=== PATIENT | female | born 1980 | race Hispanic/Latino ===

== ENCOUNTER 2021-04-27 15:11 | Emergency (ER) | payer SELFPAY ==
[2021-04-27] MEDS ORDERED: SODIUM CHLORIDE 0.9% 1000 ML 1,000 ML IV ONE ×2 (15:26→16:34)
--- NOTE | 2021-04-27 15:32 | Emergency Department Report ---
ED General Adult HPI - General Chief complaint: Altered Mental Status Stated complaint: AMS Time Seen by Provider: 04/27/21 15:26 Source: EMS Mode of arrival: Stretcher Limitations: Altered Mental Status - History of Present Illness Initial comments: Patient is 41 years old female brought to the emergency room from [facility] by EMS for evaluation of altered mental status. EMS reported that the detox center told him that patient was last known normal was 9AM. Patient is alert however she is not oriented in place time and person. Patient is talking gibberish. Vital signs stable. Staff member at the rehab center stated that patient receive Ativan and Haldol today. - Related Data Home Medications Medication Instructions Recorded Confirmed Last Taken Benztropine [Cogentin] 1 mg PO BID 04/28/21 04/28/21 Unknown Cariprazine HCl [Vraylar] 3 mg PO DAILY 04/28/21 04/28/21 Unknown Escitalopram [Lexapro] 10 mg PO DAILY 04/28/21 04/28/21 Unknown Haloperidol Lactate 5 mg IM Q6HR PRN 04/28/21 04/28/21 Unknown Keppra TAB 500 mg PO BID 04/28/21 04/28/21 Unknown LORazepam [Lorazepam] 2 mg PO DAILY 04/28/21 04/28/21 Unknown [place] Carbonate [[place] 450 mg PO BID 04/28/21 04/28/21 Unknown Carbonate ER] risperiDONE [RisperDAL] 1 mg PO QHS 04/28/21 04/28/21 Unknown Previous Rx's Medication Instructions Recorded Last Taken Type Nitrofurantoin [place]/M-Cryst 100 mg PO Q12HR #14 capsule 04/27/21 Unknown Rx [Macrobid CAP] Allergies Allergy/AdvReac Type Severity Reaction Status Date / Time No Known Allergies Allergy Unverified 04/27/21 15:19 ED Review of Systems ROS: Stated complaint: AMS Other details as noted in HPI Comment: Unobtainable due to pts medical conditions ED Past Medical Hx - Past Medical History Previous Medical History?: Yes Hx Seizures: Yes Additional medical history: Bi polar - Medications Home Medications: Home Medications Medication Instructions Recorded Confirmed Last Taken Type Nitrofurantoin [place]/M-Cryst 100 mg PO Q12HR #14 capsule 04/27/21 Unknown Rx [Macrobid CAP] Benztropine [Cogentin] 1 mg PO BID 04/28/21 04/28/21 Unknown History Cariprazine HCl [Vraylar] 3 mg PO DAILY 04/28/21 04/28/21 Unknown History Escitalopram [Lexapro] 10 mg PO DAILY 04/28/21 04/28/21 Unknown History Haloperidol Lactate 5 mg IM Q6HR PRN 04/28/21 04/28/21 Unknown History Keppra TAB 500 mg PO BID 04/28/21 04/28/21 Unknown History LORazepam [Lorazepam] 2 mg PO DAILY 04/28/21 04/28/21 Unknown History [place] Carbonate [[place] 450 mg PO BID 04/28/21 04/28/21 Unknown History Carbonate ER] risperiDONE [RisperDAL] 1 mg PO QHS 04/28/21 04/28/21 Unknown History ED Physical Exam - General Limitations: Altered Mental Status General appearance: alert, appears intoxicated - Head Head exam: Present: atraumatic, normocephalic, normal inspection - Eye Eye exam: Present: normal appearance - ENT ENT exam: Present: mucous membranes dry - Neck Neck exam: Present: normal inspection, full ROM. Absent: tenderness - Respiratory Respiratory exam: Present: normal lung sounds bilaterally - Cardiovascular Cardiovascular Exam: Present: regular rate, normal rhythm, normal heart sounds - GI/Abdominal GI/Abdominal exam: Present: soft, normal bowel sounds. Absent: distended, tenderness, guarding, rebound, rigid, organomegaly, bruit, pulsatile mass, hernia - Extremities Exam Extremities exam: Present: normal inspection, full ROM, normal capillary refill - Back Exam Back exam: Present: normal inspection, full ROM. Absent: CVA tenderness (R), CVA tenderness (L) - Neurological Exam Neurological exam: Present: alert, altered, CN II-XII intact, reflexes normal. Absent: motor sensory deficit - Psychiatric Psychiatric exam: Present: agitated - Skin Skin exam: Present: warm, intact, normal color ED Course Vital Signs 04/27/21 04/27/21 04/27/21 15:34 15:46 16:16 Temperature Pulse Rate 79 80 Respiratory 13 19 Rate Blood Pressure 81/40 107/54 Blood Pressure [Right] O2 Sat by Pulse 95 98 100 Oximetry 04/27/21 04/28/21 04/28/21 17:11 07:40 07:43 Temperature 98.4 F 98 F Pulse Rate 90 Respiratory 20 Rate Blood Pressure Blood Pressure 100/56 [Right] O2 Sat by Pulse 96 96 Oximetry ED Medical Decision Making - Lab Data Result diagrams: 04/27/21 16:09 04/27/21 16:09 - Medical Decision Making Patient is 41 years old female brought to the emergency room from [facility] by EMS for evaluation of altered mental status. EMS reported that the detox center told him that patient was last known normal was 9AM. Patient is alert however she is not oriented in place time and person. Patient is talking gibberish. Vital signs stable. Staff member at the rehab center stated that patient receive Ativan and Haldol today. Labs reviewed and is unremarkable. UDS is negative for acute finding. Patient blood pressure was a little bit low and improved with normal saline. Patient is moving all her extremities no facial droop no clinical evidence of a stroke. I believe patient altered mental status most likely due to medication most likely the Haldol. Patient will be discharged back to the detox facility to finish her treatment. Critical care attestation.: If time is entered above; I have spent that time in minutes in the direct care of this critically ill patient, excluding procedure time. ED Disposition Clinical Impression: Altered mental status Disposition: [address] [place] [address] Is pt being admited?: No Condition: Stable Instructions: Delirium Prescriptions: Nitrofurantoin [place]/M-Cryst [Macrobid CAP] 100 mg PO Q12HR #14 capsule Referrals: PRIMARY CARE, [Primary Care Provider] - 3-5 Days
[2021-04-27 16:32] LABS: Basophils % (Auto) 0.4 % (0.0-1.8); Eosinophils # (Auto) 0.1 K/mm3 (0.0-0.4); Eosinophils % (Auto) 1.4 % (0.0-4.3); Hematocrit 39.3 % (30.3-42.9); Hemoglobin 13.2 gm/dl (10.1-14.3); Lymphocytes # (Auto) 1.3 K/mm3 (1.2-5.4); Lymphocytes % (Auto) 15.4 % (13.4-35.0); Mean Corpuscular HGB Conc 34 % (30-34); Mean Corpuscular Volume 87 fl (79-97); Monocytes # (Auto) 0.4 K/mm3 (0.0-0.8); Monocytes % (Auto) 4.3 % (0.0-7.3); Platelet Count 325 K/mm3 (140-440); Red Blood Count 4.53 M/mm3 (3.65-5.03); Red Cell Distribution Width 13.9 % (13.2-15.2)
[2021-04-27 16:50] LABS: Bilirubin,Urine NEG (Negative); Blood,Urine LG (Negative); Color,Urine Yellow (Yellow); RBC,Urine > 182.0 /HPF (0.0-6.0); Urobilinogen,Urine < 2.0 mg/dL (<2.0)
[2021-04-27 16:50] LABS: Alanine Aminotransferase 14 units/L (7-56); Albumin 4.4 g/dL (3.9-5); BUN/Creatinine Ratio 10; Blood Urea Nitrogen 8 mg/dL (7-17); Calcium 9.4 mg/dL (8.4-10.2); Hemolysis Index 11
[2021-04-27 16:57] LABS: Amphetamine Screen,Urine PRESUMPTIVE NEGATIVE; Benzodiazepines Screen,Urine PRESUMPTIVE NEGATIVE; Cannabinoid Screen,Urine PRESUMPTIVE NEGATIVE; Cocaine Screen,Urine PRESUMPTIVE NEGATIVE; Methadone Screen,Urine PRESUMPTIVE NEGATIVE; Opiate Screen,Urine PRESUMPTIVE NEGATIVE
[2021-04-27 16:57] LABS: Bilirubin,Direct < 0.2 mg/dL (0-0.2)
--- NOTE | 2021-04-27 18:31 | XRay Report ---
CHEST 1 VIEW INDICATION: Altered Mental Status. COMPARISON: None FINDINGS: SUPPORT DEVICES: None. HEART: Within normal limits. LUNGS/PLEURA: No acute air space or interstitial disease. ADDITIONAL FINDINGS: None. IMPRESSION: 1. No acute findings. Signer Name: Jamel Lemus MD Signed: 04/27/2021 6:27 PM Workstation Name: [id number]
[2021-04-28] MEDS ORDERED: SODIUM CHLORIDE 0.9% 1000 ML 0 ML ONE (06:24)
--- NOTE | 2021-04-28 10:41 | Consultation ---
History of Present Illness - Reason for Consult Consult date: 04/28/21 Reason for consult: Mental health evaluation - History of Present Psychiatric Illness Per Note: Patient is 41 years old female with history of bipolar. Patient brought to the emergency room yesterday from [facility] for evaluation of altered mental status. Patient has been admitted to their facility for few days. Patient is medically clear by me to go back to their facility for to finish her treatment however facility refused to take the patient back stating that patient need higher level of care. I consulted our mental health team to evaluate patient for further recommendation. Patient spend the whole night's walking in the psychiatric area picking up trash he is in looking into trash cans. Patient is alert however she is disoriented. Patient told me that she 1 the partition between the 2 rooms open so she can observe her baby because the lady that take care of them she left them alone and went to do her nails. I believe patient is in acute psychosis Debbi Fuentes is a 41 year old female with history of Bipolar. The patient presents with disorganized thoughts and flight of ideas. She is pacing around the room and unable to participate in assessment. Psych History: Unable to assess PAST MEDICAL HISTORY: Unable to assess Family Psychiatric History: Unable to assess SOCIAL HISTORY: Unable to assess REVIEW OF SYSTEMS: Unable to assess MENTAL STATUS EXAMINATION: Unable to assess Assessment and Plan (1) Treatment plan Continue 1013 Continue home medications. Start Geodon 20mg po BIdD Risks, benefits and alternatives of medications discussed with the patient, questions answered and consent obtained from patient. PSYCHOTHERAPY: Supportive psychotherapy provided MEDICAL: Per primary team DELIRIUM PRECAUTIONS: Please re-orient patient frequently, keep lights on during the day, and minimize benzodiazepines and opiates as these medications could worsen patient's confusion. 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 Will follow. Thank you for the consult. Please contact with any questions and/or concerns. Case staffed with Dr. Tabor Medications and Allergies Allergies Allergy/AdvReac Type Severity Reaction Status Date / Time No Known Allergies Allergy Unverified 04/27/21 15:19 Home Medications Medication Instructions Recorded Confirmed Last Taken Type Nitrofurantoin [place]/M-Cryst 100 mg PO Q12HR #14 capsule 04/27/21 Unknown Rx [Macrobid CAP] Benztropine [Cogentin] 1 mg PO BID 04/28/21 04/28/21 Unknown History Cariprazine HCl [Vraylar] 3 mg PO DAILY 04/28/21 04/28/21 Unknown History Escitalopram [Lexapro] 10 mg PO DAILY 04/28/21 04/28/21 Unknown History Haloperidol Lactate 5 mg IM Q6HR PRN 04/28/21 04/28/21 Unknown History Keppra TAB 500 mg PO BID 04/28/21 04/28/21 Unknown History LORazepam [Lorazepam] 2 mg PO DAILY 04/28/21 04/28/21 Unknown History [place] Carbonate [[place] 450 mg PO BID 04/28/21 04/28/21 Unknown History Carbonate ER] risperiDONE [RisperDAL] 1 mg PO QHS 04/28/21 04/28/21 Unknown History Mental Status Exam - Vital signs Last Vital Signs Temp 98 F 04/28/21 07:43 Pulse 90 04/28/21 07:43 Resp 20 04/28/21 07:43 BP 100/56 04/28/21 07:43 Pulse Ox 96 04/28/21 07:43 Results Result Diagrams: 04/27/21 16:09 04/27/21 16:09 Abnormal lab results 04/27/21 04/27/21 04/27/21 Range/Units 16:09 16:09 16:09 Seg Neutrophils % 78.5 H (40.0-70.0) % Ammonia 18.0 L (25-60) umol/L Total Creatine Kinase 400 H (30-135) units/L Urine pH (5.0-7.0) Urine WBC (Auto) (0.0-6.0) /HPF 04/27/21 Range/Units 16:36 Seg Neutrophils % (40.0-70.0) % Ammonia (25-60) umol/L Total Creatine Kinase (30-135) units/L Urine pH 8.0 H (5.0-7.0) Urine WBC (Auto) 57.0 H (0.0-6.0) /HPF All other labs normal.
[2021-04-28] MEDS ORDERED: WATER FOR INJ Sterile (PF) 10 ML ONE (10:45)
[2021-04-28] MEDS ORDERED: KEPPRA 500 MG PO SCH (11:00)
[2021-04-28] MEDS: BENZTROPINE 1 MG TAB PO SCH ×2 (11:12→22:26)
[2021-04-28] MEDS: levETIRAcetam 500 MG TAB PO SCH ×2 (11:12→22:27)
[2021-04-28] MEDS: LITHIUM CARBONATE ER 450 MG TAB PO SCH ×2 (11:27→22:27)
[2021-04-28] MEDS ORDERED: ZIPRASIDONE MESYLATE 20 MG VIAL IM ONE (11:30)
[2021-04-28] MEDS ORDERED: ESCITALOPRAM 10 MG TAB PO SCH (11:30)
[2021-04-28] MEDS ORDERED: hydrOXYzine PAMOATE 25 MG CAP PO ONE (15:04)
[2021-04-28] MEDS ORDERED: diphenhydrAMINE 25 MG CAP PO ONE ×2 (19:48→22:05)
[2021-04-28] MEDS ORDERED: risperiDONE 1 MG TAB PO SCH (22:00)
[2021-04-28] MEDS: ZIPRASIDONE 20 MG CAP PO SCH (22:26)
--- NOTE | 2021-04-29 09:27 | Progress Note ---
Subjective - Reason for Consult Consult date: 04/29/21 Reason for consult: mental health evaluation - Chief Complaint Chief complaint: The patient was seen this morning, she continues to present with disorganized thoughts and flight of ideas. Psych History: Unable to assess PAST MEDICAL HISTORY: Unable to assess Family Psychiatric History: Unable to assess SOCIAL HISTORY: Unable to assess REVIEW OF SYSTEMS: Unable to assess MENTAL STATUS EXAMINATION: Unable to assess Assessment and Plan (1) Treatment plan Continue 1013 Continue home medications. Start Geodon 20mg po BIdD Risks, benefits and alternatives of medications discussed with the patient, questions answered and consent obtained from patient. PSYCHOTHERAPY: Supportive psychotherapy provided MEDICAL: Per primary team DELIRIUM PRECAUTIONS: Please re-orient patient frequently, keep lights on during the day, and minimize benzodiazepines and opiates as these medications could worsen patient's confusion. 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 Will follow. Thank you for the consult. Please contact with any questions and/or concerns. Case staffed with Dr. Tabor Medications and Allergies Mental Status Exam - Vital signs Last Vital Signs Temp 97.8 F 04/29/21 08:00 Pulse 80 04/29/21 08:00 Resp 18 04/29/21 08:00 BP 110/60 04/29/21 08:00 Pulse Ox 99 04/29/21 09:19
[2021-04-29] MEDS ORDERED: CARIPRAZINE HCL 3 MG PO SCH (10:00)
[2021-04-29] MEDS ORDERED: levETIRAcetam 500 MG TAB PO ONE ×3 (10:20→21:24)
[2021-04-29] MEDS ORDERED: ZIPRASIDONE 20 MG CAP ONE ×4 (10:20→22:00)
[2021-04-29] MEDS ORDERED: BENZTROPINE 1 MG TAB ONE ×4 (10:20→21:24)
--- NOTE | 2021-04-29 10:28 | Event Note ---
Date: 04/29/21 Patient today is walking in the [facility] area. Patient asking if she can be discharged home. Patient looks much better than yesterday. Vital sign stable. Labs reviewed and is unremarkable. Patient is recommended for inpatient psychiatric admission pending acceptance.
[2021-04-29] MEDS: ZIPRASIDONE 20 MG CAP PO SCH ×2 (10:37→22:43)
[2021-04-29] MEDS: BENZTROPINE 1 MG TAB PO SCH ×2 (10:37→22:43)
[2021-04-29] MEDS: levETIRAcetam 500 MG TAB PO SCH ×2 (10:38→22:44)
[2021-04-29] MEDS ORDERED: LITHIUM CARBONATE ER 450 MG TAB PO ONE ×5 (10:39→22:35)
[2021-04-29] MEDS ORDERED: NITROFURANTOIN MONOHYD/M-CRYST 100 MG CAP PO ONE (17:57)
[2021-04-29] MEDS ORDERED: NITROFURANTOIN MONOHYD/M-CRYST 100 MG CAP ONE ×2 (18:02)
[2021-04-29] MEDS: LITHIUM CARBONATE ER 450 MG TAB PO SCH (22:43)
[2021-04-30 02:09] VITALS: BP 97/66
--- NOTE | 2021-04-30 09:08 | Progress Note ---
Subjective - Reason for Consult Consult date: 04/30/21 Reason for consult: AMS - Chief Complaint Chief complaint: The patient was seen today. She is calm, cooperative and pleasant. She is a/o x 3. She says she feels good. The patient says "I feel good. I'm happy." She denies SI/HI. She says "no, before, a long time ago I took pills." She says "I was trying to get attention from my ." The patient says "but not now. I'm happy. I'm ready to go home." The patient denies hallucinations of any kind. She says the medications she was getting in the hospital is a good regimen for her. The patient says "in the past the meds wasn't good. But theses work good." The nursing staff states the patient has been calm, cooperative and lucid. REVIEW OF SYSTEMS Constitutional: Negative for weight loss ENT: Negative for stridor Respiratory: Negative for cough or hemoptysis All other systems reviewed and are negative MENTAL STATUS EXAMINATION General Appearance and Behavior: Age appropriate, good hygiene, wearing appropriate clothes, calm and cooperative, pleasant. Cooperation: cooperative Psychomotor Behavior: Psychomotor normal Mood: calm Affect and affective range: Euthymic Thought Process: goal directed Thought Content: None Speech: Normal volume, Regular rate and rhythm, Suicidal Ideation: Denies Homicidal Ideation: Denies Hallucinations: Denies Delusions: None elicited Impulse Control: Limited Insight and Judgment: Limited Memory: limited Attention: Attentive Orientation: alert and oriented Assessment and Plan (1) Bipolar Disorder Current Visit: Yes Status: Acute Treatment plan d/c 1013 Llith[place] 450m mg po BID Cogentin 1mg po BID Geodon 20mg po BID Risks, benefits and alternatives of medications discussed with the patient, questions answered and consent obtained from patient. PSYCHOTHERAPY: Supportive psychotherapy provided MEDICAL: Per primary team DELIRIUM PRECAUTIONS: Please re-orient patient frequently, keep lights on during the day, and minimize benzodiazepines and opiates as these medications could worsen patient's confusion. 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 The sack cleaning hand to give the patient all necessary outpatient resources. Will sign off. Thank you for the consult. Please contact with any questions and/or concerns. Case staffed with Dr. Tabor Medications and Allergies Mental Status Exam - Vital signs Last Vital Signs Temp 98.5 F 04/30/21 01:49 Pulse 89 04/30/21 01:49 Resp 18 04/30/21 01:49 BP 97/66 04/30/21 01:49 Pulse Ox 100 04/30/21 01:49
[2021-04-30] MEDS: levETIRAcetam 500 MG TAB PO SCH (10:06)
[2021-04-30] MEDS: ZIPRASIDONE 20 MG CAP PO SCH (10:06)
[2021-04-30] MEDS: BENZTROPINE 1 MG TAB PO SCH (10:06)
[2021-04-30] MEDS: LITHIUM CARBONATE ER 450 MG TAB PO SCH ×2 (10:58→11:01)
--- NOTE | 2021-04-30 12:22 | Event Note ---
Date: 04/30/21 Patient has been seen, evaluated, and cleared by psychiatry team for discharge. Outpatient follow-up information has been provided. Patient will be discharged at this time.
== END 2021-04-30 16:13 | disposition home or self-care (01) ==
LOC: EEVIPCON 15:11 → ED 15:11
DX: R41.82 Altered mental status, unspecified (principal); F31.9 Bipolar disorder, unspecified; Z20.822 Contact with and (suspected) exposure to COVID-19; Z98.890 Other specified postprocedural states; Z79.899 Other long term (current) drug therapy
CPT/HCPCS: 36415; 71045; 80048; 80076; 80307; 81001; 82140; 82550; 84703; 85025; 87086; 96360; 96361; 96372; 99285; J3486; J7030; Q0177; U0003; 80320; G0480